=== PATIENT | male | born 1955 | race African-American/Black ===

== ENCOUNTER 2024-01-26 00:39 | Inpatient (IN) | payer OTHER ==
[2024-01-26 01:35] LABS: VENOUS BASE EXCESS -3.4 mmol/L (-2-2); VENOUS O2 SATURATION 67.6 % (70-80); VENOUS PCO2 49.4 mmHg (38-52); VENOUS PH 7.29 (7.310-7.410)
[2024-01-26 01:40] LABS: EOS % 2.4 % (0-4.5); HEMATOCRIT 24.4 % (35.4-49); HEMOGLOBIN 8.1 GM/dL (11.7-16.9); LYMPH % 13.5 % (8-40); MCH 29.4 pg (25.7-33.7); MCHC 33.2 g/dl (32.0-35.9); MEAN CELL VOLUME 88.7 fl (80-96); MEAN PLT VOLUME 7.1 fl (7.5-11.1); MONO % 9.3 % (3.8-10.2); NEUT % 73.8 % (42.8-82.8); PLATELET COUNT 331 10^3/uL (134-434); RBC 2.75 M/mm3 (4.00-5.60); RDW 15.6 % (11.9-15.9); WHITE BLOOD COUNT 9.1 K/mm3 (4.0-10.0)
[2024-01-26 01:48] LABS: INR 0.92 (0.83-1.09); PROTHROMBIN TIME (PATIENT) 10.6 SEC (9.7-13.0)
[2024-01-26 01:51] LABS: ACTIVATED PTT 24.8 SECONDS (25.2-36.5)
[2024-01-26 01:59] LABS: POTASSIUM 4.2 mmol/L (3.5-5.1)
[2024-01-26 02:00] LABS: BLOOD UREA NITROGEN 68.1 mg/dL (7-18); CALCIUM 8.2 mg/dL (8.5-10.1)
[2024-01-26 02:01] LABS: ALBUMIN 3.3 g/dl (3.4-5.0); MAGNESIUM 2.1 mg/dL (1.8-2.4)
[2024-01-26 02:04] LABS: CREATININE 5.4 mg/dL (0.55-1.3)
[2024-01-26 02:06] LABS: BILIRUBIN,TOTAL 0.2 mg/dL (0.2-1); TOT PROT 6.5 g/dl (6.4-8.2)
[2024-01-26] MEDS ORDERED: ACETAMINOPHEN INJECTION 100 ML IVPB ONE (03:06)
[2024-01-26] MEDS: ACETAMINOPHEN 1000 MG/100 ML BAG IVPB ONE ×2 (03:14→21:45)
[2024-01-26 04:02] LABS: EPI CELLS 4 /uL (0-25.1); HYALINE CASTS 0 /uL (0-3.1); URINE APPEARANCE CLEAR; URINE BACTERIA 0 /uL (0-1359); URINE BILIRUBIN NEGATIVE (NEGATIVE); URINE COLOR YELLOW; URINE GLUCOSE (UA) NEGATIVE (NEGATIVE); URINE KETONE NEGATIVE (NEGATIVE); URINE LEUK ESTERASE NEGATIVE (NEGATIVE); URINE NITRITE NEGATIVE (NEGATIVE); URINE PROTEIN 1+ (NEGATIVE); URINE RBC 18 /uL (0-23.9); URINE UROBILINOGEN 0.2 mg/dL (0.2-1.0); URINE WBC 11 /uL (0-25.8)
[2024-01-26 04:16] LABS: URINE UREA NITROGEN 331 mg/dL (350-1000)
[2024-01-26] MEDS ORDERED: ALBUTEROL SO4 HFA INHALER IH PRN (04:58)
[2024-01-26] MEDS ORDERED: ALBUTEROL SO4 2.5/IPRATROPIUM 0.5 INH SOL 3 ML VIAL.NEB. NEB PRN (05:39)
[2024-01-26] MEDS: SODIUM CHLORIDE 0.9% 500 ML INFUS.BAG IV ONE (05:47)
[2024-01-26] MEDS: HEPARIN NA (PORCINE) 5,000 UNITS/ML 1ML VIAL SQ SCH (05:52)
[2024-01-26 06:17] LABS: MCH 29.3 pg (25.7-33.7); MCHC 33.2 g/dl (32.0-35.9); MEAN CELL VOLUME 88.2 fl (80-96); PLATELET COUNT 322 10^3/uL (134-434); RBC 2.72 M/mm3 (4.00-5.60); RDW 15.6 % (11.9-15.9); WHITE BLOOD COUNT 7.6 K/mm3 (4.0-10.0)
[2024-01-26 06:26] LABS: POTASSIUM 4.2 mmol/L (3.5-5.1)
[2024-01-26] MEDS ORDERED: LEVOTHYROXINE NA 100 MCG TABLET (FP) ONE (06:27)
[2024-01-26] MEDS: LEVOTHYROXINE NA 100 MCG TABLET (FP) PO SCH (06:29)
[2024-01-26] MEDS ORDERED: ALBUTEROL SO4 2.5/IPRATROPIUM 0.5 INH SOL 3 ML VIAL.NEB. NEB SCH (08:00)
[2024-01-26] MEDS ORDERED: methylPREDNISolone NA SUCC 40 MG/1 ML VIAL ONE (11:14)
[2024-01-26] MEDS ORDERED: ALBUTEROL SO4 2.5/IPRATROPIUM 0.5 INH SOL 3 ML VIAL.NEB. NEB ONE (11:14)
[2024-01-26] MEDS ORDERED: TAMSULOSIN HCL 0.4 MG CAP ONE (11:14)
[2024-01-26] MEDS: methylPREDNISolone NA SUCC 40 MG/1 ML VIAL IVPUSH SCH (11:25)
[2024-01-26] MEDS: TAMSULOSIN HCL 0.4 MG CAP PO SCH (11:25)
[2024-01-26] MEDS: ALBUTEROL SO4 2.5/IPRATROPIUM 0.5 INH SOL 3 ML VIAL.NEB. NEB SCH (11:25)
[2024-01-26] MEDS: SOLIFENACIN SUCCINATE 5 MG TAB PO SCH (11:29)
[2024-01-26] MEDS: ATORVASTATIN CA 20 MG TABLET (FP) PO SCH (21:45)
[2024-01-27] MEDS: oxyCODONE HCL 10 MG SUSTAINED ACTING TABLET PO ONE (03:57)
[2024-01-27] MEDS: MAG HYDROX/AL HYDROX/SIMETH 30 ML UNIT-DOSE CUP PO ONE (03:57)
[2024-01-27] MEDS: MAGNESIUM HYDROX 2400MG/30ML ORAL SUSPENSION 30 ML CUP PO ONE (06:14)
[2024-01-27] MEDS ORDERED: ALBUTEROL SO4 HFA INHALER IH PRN (07:51)
[2024-01-27] MEDS: ALBUTEROL SO4 2.5/IPRATROPIUM 0.5 INH SOL 3 ML VIAL.NEB. NEB SCH ×2 (08:47→20:18)
[2024-01-27 08:53] LABS: ALBUMIN 3.5 g/dl (3.4-5.0); BLOOD UREA NITROGEN 72.2 mg/dL (7-18); POTASSIUM 4.8 mmol/L (3.5-5.1)
[2024-01-27 08:58] LABS: BILIRUBIN,TOTAL 0.3 mg/dL (0.2-1); TOT PROT 7.3 g/dl (6.4-8.2)
[2024-01-27 09:04] LABS: CALCIUM 9.5 mg/dL (8.5-10.1); HEMOGLOBIN 9.7 GM/dL (11.7-16.9); MCH 29.1 pg (25.7-33.7); MCHC 33.4 g/dl (32.0-35.9); MEAN CELL VOLUME 87.1 fl (80-96); MEAN PLT VOLUME 7.4 fl (7.5-11.1); PLATELET COUNT 410 10^3/uL (134-434); RBC 3.33 M/mm3 (4.00-5.60); RDW 15.6 % (11.9-15.9); WHITE BLOOD COUNT 13.6 K/mm3 (4.0-10.0)
[2024-01-27] MEDS: TAMSULOSIN HCL 0.4 MG CAP PO SCH (09:04)
[2024-01-27] MEDS: methylPREDNISolone NA SUCC 40 MG/1 ML VIAL IVPUSH SCH ×2 (09:04→17:10)
[2024-01-27] MEDS: SOLIFENACIN SUCCINATE 5 MG TAB PO SCH (09:07)
[2024-01-27 10:39] LABS: ANISOCYTOSIS 0; MACROCYTOSIS 0
[2024-01-27] MEDS: INSULIN ASPART SLIDING SCALE (NOVOLOG) 1 VIAL SQ SCH (11:44)
[2024-01-27] MEDS: FLUTICASONE/UMECLIDIN/VILANTER(200-62.5-25 TRELEGY ELLIPTA) INAHLER IH SCH (13:40)
[2024-01-27] MEDS: HEPARIN NA (PORCINE) 5,000 UNITS/ML 1ML VIAL SQ SCH (13:40)
[2024-01-27] MEDS ORDERED: ALBUTEROL SO4 0.083% IH SOL 2.5 MG/3 ML VIAL.NEB. NEB PRN (16:06)
[2024-01-27] MEDS: ALBUTEROL SO4 0.083% IH SOL 2.5 MG/3 ML VIAL.NEB. NEB SCH (16:15)
[2024-01-27] MEDS: AZITHROMYCIN 250 MG TABLET PO ONE (16:31)
[2024-01-27] MEDS: oxyCODONE HCL 5 MG TABLET PO PRN (17:10)
[2024-01-27] MEDS: NICOTINE 7 MG/24 HOURS TOPICAL PATCH TD SCH (18:57)
[2024-01-27] MEDS: ATORVASTATIN CA 20 MG TABLET (FP) PO SCH (21:11)
[2024-01-28] MEDS: LEVOTHYROXINE NA 100 MCG TABLET (FP) PO SCH (06:11)
[2024-01-28 09:23] LABS: HEMATOCRIT 28.4 % (35.4-49); HEMOGLOBIN 9.4 GM/dL (11.7-16.9); MCH 28.9 pg (25.7-33.7); MCHC 33.2 g/dl (32.0-35.9); MEAN CELL VOLUME 87.1 fl (80-96); MEAN PLT VOLUME 7.8 fl (7.5-11.1); PLATELET COUNT 421 10^3/uL (134-434); RBC 3.26 M/mm3 (4.00-5.60); RDW 15.2 % (11.9-15.9); WHITE BLOOD COUNT 16.7 K/mm3 (4.0-10.0)
[2024-01-28 09:45] LABS: POTASSIUM 4.6 mmol/L (3.5-5.1)
[2024-01-28 09:53] LABS: ALBUMIN 3.6 g/dl (3.4-5.0); ANISOCYTOSIS 0; MACROCYTOSIS 0
[2024-01-28 09:54] LABS: BILIRUBIN,TOTAL 0.2 mg/dL (0.2-1); CALCIUM 9.7 mg/dL (8.5-10.1)
[2024-01-28 09:58] LABS: CREATININE 3.4 mg/dL (0.55-1.3)
[2024-01-28 09:59] LABS: TOT PROT 7.2 g/dl (6.4-8.2)
[2024-01-28] MEDS: AZITHROMYCIN 250 MG TABLET PO SCH (10:18)
[2024-01-28 20:07] LABS: ANTIGLOMERULAR BASEMENT MEN.AB <0.2 units (0.0-0.9)
[2024-01-28] MEDS: methylPREDNISolone NA SUCC 40 MG/1 ML VIAL IVPUSH SCH (21:39)
[2024-01-29 08:28] LABS: POTASSIUM 4.6 mmol/L (3.5-5.1)
[2024-01-29 08:39] LABS: HEMATOCRIT 27.6 % (35.4-49); HEMOGLOBIN 9.1 GM/dL (11.7-16.9); MCH 28.8 pg (25.7-33.7); MEAN CELL VOLUME 87.4 fl (80-96); MEAN PLT VOLUME 7.8 fl (7.5-11.1); PLATELET COUNT 392 10^3/uL (134-434); RBC 3.16 M/mm3 (4.00-5.60); RDW 15.2 % (11.9-15.9); WHITE BLOOD COUNT 15.3 K/mm3 (4.0-10.0)
[2024-01-29 08:46] LABS: IRON SERUM 41 ug/dL (50-175)
[2024-01-29 08:47] LABS: TOTAL IRON BINDING CAPACITY 369 ug/dL (250-450)
[2024-01-29 08:48] LABS: ALBUMIN 3.5 g/dl (3.4-5.0); BLOOD UREA NITROGEN 64.3 mg/dL (7-18); CALCIUM 9.9 mg/dL (8.5-10.1)
[2024-01-29 08:51] LABS: CREATININE 3.1 mg/dL (0.55-1.3)
[2024-01-29 08:53] LABS: BILIRUBIN,TOTAL 0.3 mg/dL (0.2-1); TOT PROT 6.9 g/dl (6.4-8.2)
[2024-01-29 09:42] LABS: ANISOCYTOSIS 0; MACROCYTOSIS 0
[2024-01-29 15:14] VITALS: BP 100/52; PULSE 75; RESP 18; TEMP 98.7
[2024-01-29 16:09] LABS: C-ANCA <1:20 titer (Neg:<1:20)
[2024-01-29 23:59] VITALS: BMI 34.6
[2024-01-30] MEDS ORDERED: predniSONE 20 MG TABLET (UD) PO SCH (10:00)
== END 2024-01-29 16:45 | disposition home or self-care (01) | DRG 190 ==
LOC: JER 00:39 → JERBED 03:01 → J6S 14:20
PROVIDERS: ADMIT Internal Medicine; ATTEND Internal Medicine
DX: J44.1 Chronic obstructive pulmonary disease with (acute) exacerbation (principal); J96.21 Acute and chronic respiratory failure with hypoxia; E87.1 Hypo-osmolality and hyponatremia; I13.0 Hypertensive heart and chronic kidney disease with heart failure and stage 1 through stage 4 chronic kidney disease, or unspecified chronic kidney disease; N18.4 Chronic kidney disease, stage 4 (severe); I50.32 Chronic diastolic (congestive) heart failure; N17.9 Acute kidney failure, unspecified; F11.20 Opioid dependence, uncomplicated; D64.9 Anemia, unspecified; E03.9 Hypothyroidism, unspecified; E11.22 Type 2 diabetes mellitus with diabetic chronic kidney disease; Z99.81 Dependence on supplemental oxygen; D63.1 Anemia in chronic kidney disease
CPT/HCPCS: 0241U-QW; 36415; 71045-TC-FY; 71250-TC; 76775-TC; 80048; 80053; 81003; 82436; 82570; 82607; 82728; 82746; 82803; 82962; 83036; 83516; 83520; 83540; 83550; 83735; 83880; 83883; 83935; 84155; 84156; 84165; 84300; 84484; 84540; 85025; 85027; 85045; 85610; 85730; 86038; 86225; 86256; 87086; 93005; 93010; 94640; 99285-25; J0131; J1644

== ENCOUNTER 2024-02-06 05:39 | Observation (INO) | payer OTHER ==
[2024-02-06 06:04] VITALS: BMI 32.9
[2024-02-06] MEDS ORDERED: ACETAMINOPHEN INJECTION 100 ML IVPB ONE (06:06)
[2024-02-06] MEDS: ACETAMINOPHEN 1000 MG/100 ML BAG IVPB ONE (06:10)
[2024-02-06 07:09] LABS: BASO % 0.4 % (0-2.0); EOS % 1.4 % (0-4.5); HEMATOCRIT 25.5 % (35.4-49); HEMOGLOBIN 8.5 GM/dL (11.7-16.9); MCH 29.3 pg (25.7-33.7); MCHC 33.4 g/dl (32.0-35.9); MEAN CELL VOLUME 87.7 fl (80-96); MEAN PLT VOLUME 7.3 fl (7.5-11.1); NEUT % 79.2 % (42.8-82.8); PLATELET COUNT 325 10^3/uL (134-434); RBC 2.91 M/mm3 (4.00-5.60); RDW 15.7 % (11.9-15.9); WHITE BLOOD COUNT 14.1 K/mm3 (4.0-10.0)
[2024-02-06 07:34] LABS: ALBUMIN 3.2 g/dl (3.4-5.0); MAGNESIUM 1.7 mg/dL (1.8-2.4)
[2024-02-06 07:37] LABS: CREATININE 2.4 mg/dL (0.55-1.3)
[2024-02-06 07:39] LABS: BILIRUBIN,TOTAL 0.3 mg/dL (0.2-1); TOT PROT 6.2 g/dl (6.4-8.2)
[2024-02-06 07:41] LABS: N-TERMINAL BNP 122.9 pg/ml (5-125)
[2024-02-06 08:12] LABS: BLOOD UREA NITROGEN 38.7 mg/dL (7-18); CALCIUM 8.3 mg/dL (8.5-10.1)
[2024-02-06] MEDS: PANTOPRAZOLE 40 MG TABLET PO ONE (09:50)
[2024-02-06 13:09] LABS: ERYTHROCYTE SEDIMENTATION RATE 15 mm/hr (0-20)
[2024-02-06 13:51] VITALS: BP 106/67; PULSE 61; RESP 19; TEMP 98
[2024-02-07] MEDS ORDERED: ENOXAPARIN NA (PORCINE) 40 MG/0.4 ML DISP.SYRIN SQ SCH (10:00)
== END 2024-02-06 14:01 | disposition home or self-care (01) ==
LOC: JER 05:39 → JERBED 09:08
PROVIDERS: ADMIT Internal Medicine; ATTEND Internal Medicine
PROC: 3E033NZ Introduction of Analgesics, Hypnotics, Sedatives into Peripheral Vein, Percutaneous Approach (ICD-10-PCS; principal; 2024-02-06)
DX: K29.70 Gastritis, unspecified, without bleeding (principal); R10.13 Epigastric pain; I11.0 Hypertensive heart disease with heart failure; E11.22 Type 2 diabetes mellitus with diabetic chronic kidney disease; G62.9 Polyneuropathy, unspecified; E11.40 Type 2 diabetes mellitus with diabetic neuropathy, unspecified; F11.90 Opioid use, unspecified, uncomplicated; J44.9 Chronic obstructive pulmonary disease, unspecified; I12.9 Hypertensive chronic kidney disease with stage 1 through stage 4 chronic kidney disease, or unspecified chronic kidney disease; N18.4 Chronic kidney disease, stage 4 (severe); E03.9 Hypothyroidism, unspecified; Z96.641 Presence of right artificial hip joint; D64.9 Anemia, unspecified; Z85.46 Personal history of malignant neoplasm of prostate; D72.829 Elevated white blood cell count, unspecified; Z72.0 Tobacco use
CPT/HCPCS: 36415; 71045-TC-FY; 80053; 82550; 82553; 83735; 83880; 84436; 84439; 84443; 84481; 84484; 85025; 85651; 86140; 93005; 93010; 93970-TC; 96374; 99285-25; G0378; J0131

== ENCOUNTER 2024-05-01 09:01 | Observation (INO) | payer OTHER ==
[2024-05-01 09:28] VITALS: BMI 34.1
[2024-05-01] MEDS ORDERED: morphine SULFATE 4 MG/ML VIAL ONE (10:01)
[2024-05-01] MEDS ORDERED: ACETAMINOPHEN INJECTION 100 ML ONE (10:01)
[2024-05-01] MEDS ORDERED: ONDANSETRON 4 MG/2 ML VIAL ONE (10:02)
[2024-05-01] MEDS: LACTATED RINGERS SOLUTION 1000 ML INFUS.BAG IV ONE (10:03)
[2024-05-01] MEDS: morphine SULFATE 4 MG/ML VIAL IVPUSH ONE (10:04)
[2024-05-01] MEDS: ACETAMINOPHEN 1000 MG/100 ML BAG IVPB ONE (10:05)
[2024-05-01] MEDS: FAMOTIDINE 20 MG/50 ML IVPB 20 MG/50 ML MG IVPB ONE (10:06)
[2024-05-01 10:10] LABS: BASO % 0.3 % (0-2.0); EOS % 0.3 % (0-4.5); HEMATOCRIT 32.7 % (35.4-49); HEMOGLOBIN 10.5 GM/dL (11.7-16.9); MCH 26.8 pg (25.7-33.7); MCHC 32.2 g/dl (32.0-35.9); MEAN CELL VOLUME 83.3 fl (80-96); MEAN PLT VOLUME 7.1 fl (7.5-11.1); MONO % 9.1 % (3.8-10.2); NEUT % 86.3 % (42.8-82.8); PLATELET COUNT 382 10^3/uL (134-434); RBC 3.93 M/mm3 (4.00-5.60); WHITE BLOOD COUNT 17.4 K/mm3 (4.0-10.0)
[2024-05-01] MEDS ORDERED: FAMOTIDINE 10 MG/ML VIAL IVPB ONE (10:13)
[2024-05-01 10:15] LABS: INR 1.05 (0.83-1.09); PROTHROMBIN TIME (PATIENT) 11.9 SEC (9.7-13.0)
[2024-05-01 10:18] LABS: ACTIVATED PTT 25.5 SECONDS (25.2-36.5)
[2024-05-01 10:33] LABS: POTASSIUM 4.8 mmol/L (3.5-5.1)
[2024-05-01 10:34] LABS: CALCIUM 9.5 mg/dL (8.5-10.1)
[2024-05-01 10:35] LABS: ALBUMIN 3.6 g/dl (3.4-5.0); BLOOD UREA NITROGEN 42.8 mg/dL (7-18)
[2024-05-01 10:38] LABS: CREATININE 4.5 mg/dL (0.55-1.3)
[2024-05-01 10:39] LABS: BILIRUBIN,TOTAL 0.4 mg/dL (0.2-1); TOT PROT 7.2 g/dl (6.4-8.2)
[2024-05-01 11:08] LABS: LACTIC ACID 3.1 mmol/L (0.4-2.0)
[2024-05-01 13:59] LABS: LACTIC ACID 2.8 mmol/L (0.4-2.0)
[2024-05-01] MEDS: INSULIN ASPART SLIDING SCALE (NOVOLOG) 1 VIAL SQ SCH (17:13)
[2024-05-01 18:16] LABS: COCAINE, UR NEGATIVE (NEGATIVE); METHADONE, UR NEGATIVE (NEGATIVE); PHENCYCLIDINE,URINE NEGATIVE (NEGATIVE); URINE AMPHETAMINES NEGATIVE (NEGATIVE)
[2024-05-01 18:19] LABS: OPIATES, URI POSITIVE (NEGATIVE); URINE BARBITURATES NEGATIVE (NEGATIVE); URINE BENZODIAZEPINES NEGATIVE (NEGATIVE)
[2024-05-01 18:23] LABS: EPI CELLS 2 /uL (0-25.1); HYALINE CASTS 0 /uL (0-3.1); PH,URINE 5.5 (5.0-8.0); URINE APPEARANCE CLEAR; URINE BACTERIA 0 /uL (0-1359); URINE BILIRUBIN NEGATIVE (NEGATIVE); URINE COLOR YELLOW; URINE GLUCOSE (UA) NEGATIVE (NEGATIVE); URINE KETONE NEGATIVE (NEGATIVE); URINE LEUK ESTERASE NEGATIVE (NEGATIVE); URINE NITRITE NEGATIVE (NEGATIVE); URINE PROTEIN TRACE (NEGATIVE); URINE RBC 10 /uL (0-23.9); URINE UROBILINOGEN 0.2 mg/dL (0.2-1.0); URINE WBC 6 /uL (0-25.8)
[2024-05-01] MEDS: LACTATED RINGERS SOLUTION 1,000 ML/1,000 ML INFUS.BAG IV SCH (18:58)
[2024-05-01] MEDS ORDERED: ALBUTEROL SO4 HFA INHALER IH PRN (20:10)
[2024-05-01] MEDS: ACETAMINOPHEN 1000 MG/100 ML BAG IVPB PRN (20:27)
[2024-05-01] MEDS: HEPARIN NA (PORCINE) 5,000 UNITS/ML 1ML VIAL SQ SCH (22:51)
[2024-05-02] MEDS: LACTATED RINGERS SOLUTION 1,000 ML/1,000 ML INFUS.BAG IV SCH (05:30)
[2024-05-02] MEDS: LEVOTHYROXINE NA 100 MCG TABLET (FP) PO SCH (06:30)
[2024-05-02] MEDS: TAMSULOSIN HCL 0.4 MG CAP PO SCH (08:19)
[2024-05-02 10:32] LABS: HEMATOCRIT 29.3 % (35.4-49); HEMOGLOBIN 9.5 GM/dL (11.7-16.9); MCH 26.6 pg (25.7-33.7); MCHC 32.3 g/dl (32.0-35.9); MEAN CELL VOLUME 82.4 fl (80-96); MEAN PLT VOLUME 8.2 fl (7.5-11.1); PLATELET COUNT 341 10^3/uL (134-434); RBC 3.56 M/mm3 (4.00-5.60); RDW 17.9 % (11.9-15.9); WHITE BLOOD COUNT 12.8 K/mm3 (4.0-10.0)
[2024-05-02 10:42] LABS: POTASSIUM 4.2 mmol/L (3.5-5.1)
[2024-05-02 10:50] LABS: BLOOD UREA NITROGEN 38.2 mg/dL (7-18); CALCIUM 9.2 mg/dL (8.5-10.1)
[2024-05-02 10:53] LABS: CREATININE 3.6 mg/dL (0.55-1.3)
[2024-05-02 10:55] LABS: BILIRUBIN,TOTAL 0.6 mg/dL (0.2-1); TOT PROT 6.2 g/dl (6.4-8.2)
[2024-05-02] MEDS: ASPIRIN COATED 81 MG TABLET.EC PO SCH (11:01)
[2024-05-02] MEDS: amLODIPine BESYLATE 10 MG TABLET (FP) PO SCH (11:02)
[2024-05-03 07:23] LABS: HEMATOCRIT 28.3 % (35.4-49); HEMOGLOBIN 9.4 GM/dL (11.7-16.9); MCH 27.3 pg (25.7-33.7); MCHC 33.1 g/dl (32.0-35.9); MEAN CELL VOLUME 82.5 fl (80-96); MEAN PLT VOLUME 7.8 fl (7.5-11.1); PLATELET COUNT 344 10^3/uL (134-434); RBC 3.43 M/mm3 (4.00-5.60); WHITE BLOOD COUNT 10.3 K/mm3 (4.0-10.0)
[2024-05-03 07:52] LABS: POTASSIUM 4.5 mmol/L (3.5-5.1)
[2024-05-03 08:00] LABS: CALCIUM 9.3 mg/dL (8.5-10.1)
[2024-05-03 08:01] LABS: BLOOD UREA NITROGEN 35.5 mg/dL (7-18); MAGNESIUM 2.1 mg/dL (1.8-2.4)
[2024-05-03 08:04] LABS: BILIRUBIN,TOTAL 0.3 mg/dL (0.2-1); CREATININE 3.2 mg/dL (0.55-1.3)
[2024-05-03 08:05] LABS: TOT PROT 6.4 g/dl (6.4-8.2)
[2024-05-03] MEDS: FLUTICASONE/UMECLIDIN/VILANTER(200-62.5-25 TRELEGY ELLIPTA) INAHLER IH SCH (14:47)
[2024-05-03] MEDS: ACETAMINOPHEN 1000 MG/100 ML BAG IVPB PRN (22:05)
[2024-05-04 07:59] LABS: HEMATOCRIT 30.9 % (35.4-49); MCH 26.9 pg (25.7-33.7); MCHC 32.5 g/dl (32.0-35.9); MEAN CELL VOLUME 82.9 fl (80-96); MEAN PLT VOLUME 7.7 fl (7.5-11.1); PLATELET COUNT 406 10^3/uL (134-434); RBC 3.73 M/mm3 (4.00-5.60); RDW 17.5 % (11.9-15.9); WHITE BLOOD COUNT 9.4 K/mm3 (4.0-10.0)
[2024-05-04 08:08] LABS: POTASSIUM 4.6 mmol/L (3.5-5.1)
[2024-05-04 08:13] LABS: ALBUMIN 3.2 g/dl (3.4-5.0); BLOOD UREA NITROGEN 31.8 mg/dL (7-18); CALCIUM 9.6 mg/dL (8.5-10.1); MAGNESIUM 2.1 mg/dL (1.8-2.4)
[2024-05-04 08:16] LABS: CREATININE 2.9 mg/dL (0.55-1.3)
[2024-05-04 08:17] LABS: BILIRUBIN,TOTAL 0.4 mg/dL (0.2-1); TOT PROT 6.9 g/dl (6.4-8.2)
[2024-05-04] MEDS: ALBUTEROL SO4 0.083% IH SOL 2.5 MG/3 ML VIAL.NEB. NEB SCH (13:54)
[2024-05-04] MEDS: ACETAMINOPHEN 500 MG TABLET (FP) PO PRN (21:18)
[2024-05-05 10:05] VITALS: BP 132/68; PULSE 95; RESP 16; TEMP 98.2
== END 2024-05-05 10:12 | disposition home or self-care (01) ==
LOC: JER 09:01 → JERBED 11:08 → J4S 22:04
PROVIDERS: ADMIT Internal Medicine; ATTEND Internal Medicine
PROC: 3E033NZ Introduction of Analgesics, Hypnotics, Sedatives into Peripheral Vein, Percutaneous Approach (ICD-10-PCS; principal; 2024-05-01)
PROC: 3E0F7GC Introduction of Other Therapeutic Substance into Respiratory Tract, Via Natural or Artificial Opening (ICD-10-PCS; 2024-05-01)
PROC: 3E033GC Introduction of Other Therapeutic Substance into Peripheral Vein, Percutaneous Approach (ICD-10-PCS; 2024-05-01)
PROC: 3E023GC Introduction of Other Therapeutic Substance into Muscle, Percutaneous Approach (ICD-10-PCS; 2024-05-01)
PROC: 3E013VG Introduction of Insulin into Subcutaneous Tissue, Percutaneous Approach (ICD-10-PCS; 2024-05-01)
PROC: 3E0337Z Introduction of Electrolytic and Water Balance Substance into Peripheral Vein, Percutaneous Approach (ICD-10-PCS; 2024-05-01)
DX: M62.82 Rhabdomyolysis (principal); E86.0 Dehydration; J44.9 Chronic obstructive pulmonary disease, unspecified; I50.30 Unspecified diastolic (congestive) heart failure; I12.9 Hypertensive chronic kidney disease with stage 1 through stage 4 chronic kidney disease, or unspecified chronic kidney disease; N18.9 Chronic kidney disease, unspecified; N17.9 Acute kidney failure, unspecified; R77.8 Other specified abnormalities of plasma proteins; E11.9 Type 2 diabetes mellitus without complications; E78.5 Hyperlipidemia, unspecified; E03.9 Hypothyroidism, unspecified; Z72.0 Tobacco use; C61 Malignant neoplasm of prostate
CPT/HCPCS: 0241U-QW; 36415; 70450-TC; 71045-TC-FY; 71275-TC; 74174-TC; 80053; 80307; 81003; 82550; 82553; 82962; 83605; 83735; 84443; 84484; 85025; 85027; 85610; 85730; 86850; 86900; 86901; 93005; 93010; 94640; 96361; 96365; 96372; 96375; 96376; 97116-GP; 97161-GP; 99285-25; G0378; J0131; J1644

== ENCOUNTER 2025-01-02 02:22 | Inpatient (IN) | payer OTHER ==
[2025-01-02] MEDS ORDERED: ACETAMINOPHEN INJECTION 100 ML ONE (03:02)
[2025-01-02] MEDS ORDERED: ONDANSETRON 4 MG/2 ML VIAL ONE (03:03)
[2025-01-02] MEDS ORDERED: FAMOTIDINE 20 MG/50 ML IVPB 20 MG/50 ML MG IVPB ONE (03:03)
[2025-01-02 03:26] LABS: ABSOLUTE IMMATURE GRANULOCYTES 0.07 x10^3/uL (0.0-0.031); BASOPHILS # 0.03 x10^3/uL (0.01-0.08); EOSINOPHIL % 0.2 % (0.8-7.0); EOSINOPHILS # 0.03 x10^3/uL (0.04-0.54); HEMATOCRIT 28.3 % (40.1-51.0); HEMOGLOBIN 8.8 g/dL (13.7-17.5); MCHC 31.1 g/dl (32.3-36.5); MEAN CELL VOLUME 89.3 fl (79.0-92.2); MEAN PLT VOLUME 9.3 fl (9.4-12.4); MONOCYTE # 1.41 x10^3/uL (0.30-0.82); PLATELET COUNT 448 x10^3/uL (163-337); RDW 18.4 % (12.2-16.4)
[2025-01-02] MEDS: ONDANSETRON 4 MG/2 ML VIAL IVPUSH ONE (03:27)
[2025-01-02] MEDS: ACETAMINOPHEN 1000 MG/100 ML BAG IVPB ONE ×2 (03:27→19:27)
[2025-01-02] MEDS: FAMOTIDINE 20 MG/50 ML IVPB 20 MG/50 ML MG IVPB ONE (03:27)
[2025-01-02 03:56] LABS: CHLORIDE 96 mmol/L (98-107)
[2025-01-02 03:58] LABS: CALCIUM 8.3 mg/dL (8.5-10.1)
[2025-01-02 03:59] LABS: ALBUMIN 3.6 g/dl (3.4-5.0); CO2 16 mmol/L (21-32); GLUCOSE,RANDOM 164 mg/dL (74-106)
[2025-01-02 04:04] LABS: TOT PROT 9.9 g/dl (6.4-8.2)
[2025-01-02 04:05] LABS: ALK PHOS 128 U/L (45-117); ANION GAP 2 mmol/L (4-13); CREATININE 8.4 mg/dL (0.55-1.3); POTASSIUM > 10.0 mmol/L (3.5-5.1); SODIUM 113 mmol/L (136-145)
[2025-01-02 04:55] LABS: LACTIC ACID 3.1 mmol/L (0.4-2.0)
[2025-01-02 04:59] LABS: CHLORIDE 100 mmol/L (98-107); POTASSIUM 5.2 mmol/L (3.5-5.1); SODIUM 133 mmol/L (136-145)
[2025-01-02 05:01] LABS: CALCIUM 9.4 mg/dL (8.5-10.1)
[2025-01-02 05:02] LABS: ANION GAP 16 mmol/L (4-13); BLOOD UREA NITROGEN 86.4 mg/dL (7-18); CO2 17 mmol/L (21-32); GLUCOSE,RANDOM 140 mg/dL (74-106)
[2025-01-02] MEDS: LACTATED RINGERS SOLUTION 1000 ML INFUS.BAG IV ONE ×2 (05:03→20:50)
[2025-01-02 05:05] LABS: SGOT/AST 16 U/L (15-37); SGPT/ALT 54 U/L (13-61)
[2025-01-02 05:06] LABS: ALK PHOS 123 U/L (45-117); BILIRUBIN,TOTAL 0.3 mg/dL (0.2-1); CREATININE 8.5 mg/dL (0.55-1.3)
[2025-01-02] MEDS ORDERED: CALCIUM GLUCONATE 10% - 1,000 MG/10 ML VIAL IVPB ONE (05:07)
[2025-01-02 05:08] LABS: TOT PROT 7.8 g/dl (6.4-8.2)
[2025-01-02] MEDS ORDERED: ONDANSETRON 4 MG/2 ML VIAL IVPUSH PRN ×2 (05:46→13:07)
[2025-01-02] MEDS ORDERED: LIDOCAINE HCL 2% JELLY 6 ML TP ONE (05:53)
[2025-01-02] MEDS: LIDOCAINE HCL 2% JELLY 10 ML CARTRIDGE PR ONE (06:10)
[2025-01-02] MEDS: HEPARIN NA (PORCINE) 5,000 UNITS/ML 1ML VIAL SQ SCH ×2 (06:11→17:24)
[2025-01-02] MEDS ORDERED: HEPARIN NA (PORCINE) 5,000 UNITS/ML 1ML VIAL ONE (06:43)
[2025-01-02] MEDS: SODIUM CHLORIDE 500 ML IV STA (07:30)
[2025-01-02] MEDS: LACTATED RINGERS SOLUTION 1,000 ML/1,000 ML INFUS.BAG IV STA (08:40)
[2025-01-02] MEDS ORDERED: TAMSULOSIN HCL 0.4 MG CAP ONE (08:43)
[2025-01-02] MEDS ORDERED: LEVOTHYROXINE NA 100 MCG TABLET (FP) ONE (08:43)
[2025-01-02 08:46] LABS: HEMATOCRIT 25.6 % (40.1-51.0); HEMOGLOBIN 7.9 g/dL (13.7-17.5); MCHC 30.9 g/dl (32.3-36.5); MEAN CELL VOLUME 87.7 fl (79.0-92.2); MEAN PLT VOLUME 9.5 fl (9.4-12.4); PLATELET COUNT 408 x10^3/uL (163-337)
[2025-01-02] MEDS: TAMSULOSIN HCL 0.4 MG CAP PO SCH (08:49)
[2025-01-02] MEDS: LEVOTHYROXINE NA 100 MCG TABLET (FP) PO SCH (08:49)
[2025-01-02] MEDS: INSULIN ASPART SLIDING SCALE (NOVOLOG) 1 VIAL SQ SCH ×2 (08:49→17:24)
[2025-01-02 09:15] LABS: CHLORIDE 101 mmol/L (98-107); POTASSIUM 5.1 mmol/L (3.5-5.1); SODIUM 134 mmol/L (136-145)
[2025-01-02 09:39] LABS: ALBUMIN 3.7 g/dl (3.4-5.0); ANION GAP 17 mmol/L (4-13); BLOOD UREA NITROGEN 88.1 mg/dL (7-18); CO2 16 mmol/L (21-32); GLUCOSE,RANDOM 107 mg/dL (74-106)
[2025-01-02 09:41] LABS: MAGNESIUM 2.6 mg/dL (1.8-2.4); PHOSPHOROUS 8.1 mg/dL (2.5-4.9); SGOT/AST 13 U/L (15-37); SGPT/ALT 49 U/L (13-61)
[2025-01-02 09:42] LABS: BILIRUBIN,TOTAL 0.3 mg/dL (0.2-1)
[2025-01-02 09:43] LABS: TOT PROT 7.5 g/dl (6.4-8.2)
[2025-01-02 09:45] LABS: ALK PHOS 115 U/L (45-117)
[2025-01-02 10:03] LABS: ARTERIAL BLD GAS O2 SATURATION 96.5 % (95-98); ARTERIAL BLOOD GAS BASE EXCESS -11.6 mmol/L (-2-2); ARTERIAL BLOOD GAS PO2 100.6 mmHg (80-100); ARTERIAL BLOOD GAS pH 7.227 (7.350-7.450)
[2025-01-02 10:06] LABS: ALLENS TEST POSITIVE
[2025-01-02] MEDS: LACTATED RINGERS SOLUTION 1,000 ML/1,000 ML INFUS.BAG IV SCH ×3 (11:40→17:23)
[2025-01-02] MEDS: ASPIRIN COATED 81 MG TABLET.EC PO SCH (11:41)
[2025-01-02] MEDS: SOLIFENACIN SUCCINATE 5 MG TAB PO SCH (11:42)
[2025-01-02] MEDS: SODIUM ZIRCONIUM CYCLOSILICATE (LOKELMA) 5 GM PACKET PO SCH ×2 (11:42→11:44)
[2025-01-02] MEDS: SEVELAMER CARBONATE 800 MG TAB (FP) PO SCH ×2 (11:42→19:10)
[2025-01-02] MEDS: FLUTICASONE/UMECLIDIN/VILANTER(200-62.5-25 TRELEGY ELLIPTA) INAHLER IH SCH (11:43)
[2025-01-02] MEDS ORDERED: SODIUM CHLORIDE 250 ML IV PRN ×2 (11:49→13:07)
[2025-01-02] MEDS ORDERED: LACTATED RINGERS SOLUTION 1,000 ML/1,000 ML INFUS.BAG IV SCH (13:07)
[2025-01-02 13:25] LABS: N-TERMINAL BNP 72.4 pg/ml (5-125)
[2025-01-02] MEDS: MUPIROCIN 2% TOPICAL OINTMENT FOR DECOLONIZATION NS SCH (17:23)
[2025-01-02] MEDS: NICOTINE 21 MG/24 HOURS TOPICAL PATCH TD SCH (17:24)
[2025-01-02 19:47] LABS: INR 1.04 (0.83-1.09); PROTHROMBIN TIME (PATIENT) 11.3 SEC (9.7-13.0)
[2025-01-02 20:44] LABS: HEPATITIS B SURF AG NON-MATERN NON-REACTIVE (NONREACTIVE)
[2025-01-02] MEDS: CHLORHEXIDINE GLUCONATE 4% CLEANSER FOR DECOLONIZATION TP SCH (21:03)
[2025-01-02 21:12] LABS: HCV DIAGNOSTIC IN-HOUSE W/RFLX NON-REACTIVE (NONREACTIVE)
[2025-01-02 21:28] LABS: ABSOLUTE IMMATURE GRANULOCYTES 0.02 x10^3/uL (0.0-0.031); BASOPHILS # 0.03 x10^3/uL (0.01-0.08); EOSINOPHIL % 3.1 % (0.8-7.0); HEMOGLOBIN 6.4 g/dL (13.7-17.5); MEAN CELL VOLUME 85.5 fl (79.0-92.2); MEAN PLT VOLUME 9.1 fl (9.4-12.4); MONOCYTE # 1.21 x10^3/uL (0.30-0.82); MONOCYTE % 12.6 % (5.3-12.2); PLATELET COUNT 308 x10^3/uL (163-337)
[2025-01-02] MEDS: PIPERACILLIN/TAZOB 2.25 GM 2.25 GM in DEXTROSE 5%-WATER - 50 ML IVPB SCH (21:48)
[2025-01-02] MEDS ORDERED: PIPERACILLIN/TAZOB 2.25 GM 2.25 GM in DEXTROSE 5%-WATER - 50 ML IVPB SCH (22:00)
[2025-01-02 22:56] LABS: POTASSIUM 3.6 mmol/L (3.5-5.1)
[2025-01-02 22:59] LABS: ALBUMIN 3.1 g/dl (3.4-5.0); CALCIUM 7.9 mg/dL (8.5-10.1)
[2025-01-02 23:02] LABS: CREATININE 5.9 mg/dL (0.55-1.3)
[2025-01-02 23:03] LABS: BILIRUBIN,TOTAL 0.3 mg/dL (0.2-1); TOT PROT 6.2 g/dl (6.4-8.2)
[2025-01-02 23:10] LABS: BLOOD UREA NITROGEN 52.8 mg/dL (7-18)
[2025-01-02] MEDS: PHENOL 177 ML SPRAY BOTTLE MM PRN (23:30)
[2025-01-03 00:39] LABS: PH,URINE 5.5 (5.0-8.0); URINE APPEARANCE CLEAR; URINE BILIRUBIN NEGATIVE (NEGATIVE); URINE COLOR YELLOW; URINE GLUCOSE (UA) NEGATIVE (NEGATIVE); URINE KETONE NEGATIVE (NEGATIVE); URINE LEUK ESTERASE NEGATIVE (NEGATIVE); URINE NITRITE NEGATIVE (NEGATIVE); URINE PROTEIN 1+ (NEGATIVE); URINE UROBILINOGEN 0.2 mg/dL (0.2-1.0)
[2025-01-03 00:46] LABS: COCAINE, UR NEGATIVE (NEGATIVE); URINE BARBITURATES NEGATIVE (NEGATIVE); URINE BENZODIAZEPINES NEGATIVE (NEGATIVE)
[2025-01-03 00:48] LABS: METHADONE, UR NEGATIVE (NEGATIVE); OPIATES, URI NEGATIVE (NEGATIVE); PHENCYCLIDINE,URINE NEGATIVE (NEGATIVE)
[2025-01-03 01:18] LABS: URINE AMPHETAMINES NEGATIVE (NEGATIVE)
[2025-01-03] MEDS: LEVOTHYROXINE NA 100 MCG TABLET (FP) PO SCH (06:07)
[2025-01-03 06:37] LABS: EPI CELLS 3.1 /uL (0-25.1); HYALINE CASTS 0.12 /uL (0-3.1); URINE RBC 6.6 /uL (0-23.9); URINE WBC 2.3 /uL (0-25.8)
[2025-01-03 06:51] LABS: ABSOLUTE IMMATURE GRANULOCYTES 0.02 x10^3/uL (0.0-0.031); BASOPHILS # 0.06 x10^3/uL (0.01-0.08); EOSINOPHIL % 3.3 % (0.8-7.0); EOSINOPHILS # 0.31 x10^3/uL (0.04-0.54); HEMATOCRIT 22.8 % (40.1-51.0); HEMOGLOBIN 7.4 g/dL (13.7-17.5); MCHC 32.5 g/dl (32.3-36.5); MEAN PLT VOLUME 9.3 fl (9.4-12.4); MONOCYTE # 0.94 x10^3/uL (0.30-0.82); MONOCYTE % 10.1 % (5.3-12.2); PLATELET COUNT 315 x10^3/uL (163-337); RDW 14.6 % (12.2-16.4)
[2025-01-03 07:11] LABS: POTASSIUM 4.1 mmol/L (3.5-5.1)
[2025-01-03 07:15] LABS: BLOOD UREA NITROGEN 51.6 mg/dL (7-18); MAGNESIUM 2.1 mg/dL (1.8-2.4)
[2025-01-03 07:19] LABS: BILIRUBIN,TOTAL 0.3 mg/dL (0.2-1); TOT PROT 6.1 g/dl (6.4-8.2)
[2025-01-03] MEDS: ASPIRIN COATED 81 MG TABLET.EC PO SCH (09:16)
[2025-01-03] MEDS: TAMSULOSIN HCL 0.4 MG CAP PO SCH (09:17)
[2025-01-03] MEDS: SOLIFENACIN SUCCINATE 5 MG TAB PO SCH (09:17)
[2025-01-03] MEDS ORDERED: SODIUM ZIRCONIUM CYCLOSILICATE (LOKELMA) 5 GM PACKET PO SCH ×2 (10:00)
[2025-01-03] MEDS: FLUTICASONE/UMECLIDIN/VILANTER(200-62.5-25 TRELEGY ELLIPTA) INAHLER IH SCH (12:26)
[2025-01-03] MEDS ORDERED: SODIUM CHLORIDE 250 ML IV PRN (15:15)
[2025-01-03] MEDS: GABAPENTIN 100 MG CAPSULE PO SCH (15:52)
[2025-01-03] MEDS: LACTATED RINGERS SOLUTION 1,000 ML/1,000 ML INFUS.BAG IV SCH (17:39)
[2025-01-03] MEDS: ACETAMINOPHEN 1000 MG/100 ML BAG IVPB ONE (20:05)
[2025-01-04] MEDS: PIPERACILLIN/TAZOB 2.25 GM 2.25 GM in DEXTROSE 5%-WATER - 50 ML IVPB SCH (01:40)
[2025-01-04 07:06] LABS: ABSOLUTE IMMATURE GRANULOCYTES 0.03 x10^3/uL (0.0-0.031); BASOPHILS # 0.06 x10^3/uL (0.01-0.08); EOSINOPHILS # 0.29 x10^3/uL (0.04-0.54); HEMATOCRIT 23.2 % (40.1-51.0); HEMOGLOBIN 7.3 g/dL (13.7-17.5); MCHC 31.5 g/dl (32.3-36.5); MEAN CELL VOLUME 87.9 fl (79.0-92.2); MEAN PLT VOLUME 9.6 fl (9.4-12.4); MONOCYTE % 10.4 % (5.3-12.2); PLATELET COUNT 304 x10^3/uL (163-337); RDW 14.5 % (12.2-16.4)
[2025-01-04 07:11] LABS: ALBUMIN 2.5 g/dl (3.4-5.0); BLOOD UREA NITROGEN 40.6 mg/dL (7-18); CALCIUM 7.2 mg/dL (8.5-10.1); MAGNESIUM 1.7 mg/dL (1.8-2.4)
[2025-01-04 07:14] LABS: CREATININE 4.4 mg/dL (0.55-1.3)
[2025-01-04 07:15] LABS: PHOSPHOROUS 3.7 mg/dL (2.5-4.9)
[2025-01-04 07:16] LABS: BILIRUBIN,TOTAL 0.1 mg/dL (0.2-1)
[2025-01-04 18:23] LABS: HIV INTERPRETATION NEGATIVE (NEGATIVE)
[2025-01-04] MEDS ORDERED: guaiFENesin/D-METHORPHAN HB 10 ML UNIT-DOSE CUPS PO PRN (19:45)
[2025-01-04] MEDS: MAGNESIUM SULFATE IN WATER 2 GM/50 ML IVPB IVPB ONE (21:52)
[2025-01-04] MEDS: BENZOCAINE/MENTH/CETYLPYRD CL 1 EACH LOZENGE MM PRN (21:52)
[2025-01-04] MEDS: FLUTICASONE PROP 0.05% 16 GM NASAL SPRAY NS PRN (21:52)
[2025-01-05 07:11] LABS: ABSOLUTE IMMATURE GRANULOCYTES 0.03 x10^3/uL (0.0-0.031); BASOPHILS # 0.06 x10^3/uL (0.01-0.08); EOSINOPHIL % 3.6 % (0.8-7.0); EOSINOPHILS # 0.34 x10^3/uL (0.04-0.54); HEMATOCRIT 25.4 % (40.1-51.0); HEMOGLOBIN 7.9 g/dL (13.7-17.5); MCHC 31.1 g/dl (32.3-36.5); MEAN CELL VOLUME 89.8 fl (79.0-92.2); MEAN PLT VOLUME 9.8 fl (9.4-12.4); MONOCYTE # 1.01 x10^3/uL (0.30-0.82); MONOCYTE % 10.6 % (5.3-12.2); PLATELET COUNT 313 x10^3/uL (163-337); RDW 14.7 % (12.2-16.4)
[2025-01-05 07:25] LABS: POTASSIUM 4.6 mmol/L (3.5-5.1)
[2025-01-05 07:30] LABS: ALBUMIN 2.9 g/dl (3.4-5.0); BLOOD UREA NITROGEN 43.4 mg/dL (7-18); MAGNESIUM 2.2 mg/dL (1.8-2.4)
[2025-01-05 07:33] LABS: CREATININE 4.6 mg/dL (0.55-1.3)
[2025-01-05 07:34] LABS: BILIRUBIN,TOTAL 0.2 mg/dL (0.2-1)
[2025-01-05 07:36] LABS: CALCIUM 8.6 mg/dL (8.5-10.1)
[2025-01-05] MEDS ORDERED: ACETAMINOPHEN 1000 MG/100 ML BAG IVPB PRN (08:51)
[2025-01-05] MEDS: FAMOTIDINE 20 MG TABLET PO SCH (09:08)
[2025-01-05 09:13] LABS: PHOSPHOROUS 3.5 mg/dL (2.5-4.9)
[2025-01-05] MEDS: IRON SUCROSE INJECTION 200 MG in SODIUM CHLORIDE 100 ML IVPB ONE (11:13)
[2025-01-05] MEDS: LYTES/YERBA SANTA 60 ML SPRAY MM SCH (13:18)
[2025-01-05 13:34] VITALS: BMI 35.1
[2025-01-05] MEDS: SODIUM CHLORIDE 0.45% 1,000 ML IV SCH (15:09)
[2025-01-06 04:02] VITALS: TEMP 98.1
[2025-01-06 07:35] LABS: HEMATOCRIT 25.9 % (40.1-51.0); HEMOGLOBIN 8.2 g/dL (13.7-17.5); MCHC 31.7 g/dl (32.3-36.5); MEAN CELL VOLUME 88.7 fl (79.0-92.2); MEAN PLT VOLUME 9.5 fl (9.4-12.4); PLATELET COUNT 327 x10^3/uL (163-337); RDW 14.6 % (12.2-16.4)
[2025-01-06 07:39] LABS: ABSOLUTE IMMATURE GRANULOCYTES 0.06 x10^3/uL (0.0-0.031); BASOPHILS # 0.07 x10^3/uL (0.01-0.08); EOSINOPHIL % 5.3 % (0.8-7.0); EOSINOPHILS # 0.48 x10^3/uL (0.04-0.54); HEMATOCRIT 25.9 % (40.1-51.0); HEMOGLOBIN 8.1 g/dL (13.7-17.5); MCHC 31.3 g/dl (32.3-36.5); MEAN CELL VOLUME 87.8 fl (79.0-92.2); MEAN PLT VOLUME 9.7 fl (9.4-12.4); MONOCYTE # 0.87 x10^3/uL (0.30-0.82); MONOCYTE % 9.5 % (5.3-12.2); PLATELET COUNT 320 x10^3/uL (163-337); RDW 14.6 % (12.2-16.4)
[2025-01-06 07:43] LABS: POTASSIUM 4.9 mmol/L (3.5-5.1)
[2025-01-06 07:46] LABS: CALCIUM 8.8 mg/dL (8.5-10.1)
[2025-01-06 07:47] LABS: ALBUMIN 2.8 g/dl (3.4-5.0); BLOOD UREA NITROGEN 46.5 mg/dL (7-18); MAGNESIUM 2.1 mg/dL (1.8-2.4)
[2025-01-06 07:50] LABS: CREATININE 3.9 mg/dL (0.55-1.3); PHOSPHOROUS 3.2 mg/dL (2.5-4.9)
[2025-01-06 07:51] LABS: BILIRUBIN,TOTAL 0.1 mg/dL (0.2-1); TOT PROT 5.8 g/dl (6.4-8.2)
[2025-01-06 12:25] VITALS: BP 142/71; PULSE 84; RESP 22
== END 2025-01-06 14:30 | disposition home or self-care (01) | DRG 683 ==
LOC: JER 02:22 → JERBED 05:05 → OBSVTOIN 05:42 → J5S 09:18 → J2W 12:16
PROVIDERS: ADMIT Hospitalist; ATTEND Internal Medicine
PROC: 02HV33Z Insertion of Infusion Device into Superior Vena Cava, Percutaneous Approach (ICD-10-PCS; principal; 2025-01-02)
PROC: B548ZZA Ultrasonography of Superior Vena Cava, Guidance (ICD-10-PCS; 2025-01-02)
PROC: 5A1D70Z Performance of Urinary Filtration, Intermittent, Less than 6 Hours Per Day (ICD-10-PCS; 2025-01-02)
PROC: 30233N1 Transfusion of Nonautologous Red Blood Cells into Peripheral Vein, Percutaneous Approach (ICD-10-PCS; 2025-01-02)
DX: N17.9 Acute kidney failure, unspecified (principal); E87.1 Hypo-osmolality and hyponatremia; E87.20 Acidosis, unspecified; I13.0 Hypertensive heart and chronic kidney disease with heart failure and stage 1 through stage 4 chronic kidney disease, or unspecified chronic kidney disease; I50.32 Chronic diastolic (congestive) heart failure; J96.11 Chronic respiratory failure with hypoxia; F11.23 Opioid dependence with withdrawal; E78.5 Hyperlipidemia, unspecified; E03.9 Hypothyroidism, unspecified; J44.9 Chronic obstructive pulmonary disease, unspecified; E11.22 Type 2 diabetes mellitus with diabetic chronic kidney disease; K29.60 Other gastritis without bleeding; E86.0 Dehydration; N18.4 Chronic kidney disease, stage 4 (severe); E83.39 Other disorders of phosphorus metabolism; K52.9 Noninfective gastroenteritis and colitis, unspecified; E86.1 Hypovolemia; R91.1 Solitary pulmonary nodule; D63.1 Anemia in chronic kidney disease; E87.5 Hyperkalemia
CPT/HCPCS: 0241U-QW; 36415; 36430; 36600; 71045-TC-FY; 71250-TC; 74177-TC; 76775-TC; 80053; 80307; 81003; 82550; 82553; 82728; 82803; 82962; 83540; 83550; 83605; 83690; 83735; 83880; 84100; 84484; 85025; 85027; 85610; 86704; 86706; 86803; 86850; 86900; 86901; 86922; 87040; 87045; 87046; 87324; 87340; 87389; 87449; 87493; 87517; 93005; 93010; 97116-GP; 97161-GP; 99285-25; G0378; J1756; P9058